=== PATIENT | male | born 1945 | race Hispanic/Latino ===

== ENCOUNTER 2018-08-28 07:40 | Day surgery (SDC) | payer OTHER ==
[2018-08-28] VITALS (9 sets, daily range): BP systolic 115–140; BP diastolic 71–88
[~2018-08-28 07:40] MED LIST: ASPI-555 PO; CARV3.1262 PO; LOSA25TA41 PO; Nitroglycerin SL; PRAV40TA3 PO
[2018-08-28] MEDS ORDERED: IOPAMIDOL 10 ML VIAL ONE ×2 (08:01→09:00)
[2018-08-28 08:42] LABS: BASOPHILS % (AUTO) 0.4 % (0.0-5.0); EOSINOPHILS % (AUTO) 2.2 % (0.0-8.0); HEMATOCRIT 45.2 % (42-54); LYMPHOCYTES % (AUTO) 16.4 % (21.0-51.0); MEAN CORPUSCULAR HGB CONC 33.4 g/dL (32.0-36.0); MEAN CORPUSCULAR VOLUME 92.7 fL (79-99); MONOCYTES % (AUTO) 11.2 % (3.0-13.0); NEUTROPHILS % (AUTO) 69.8 % (40.0-77.0); NUCLEATED RED BLOOD CELLS 0.1 % (0.0-0.19); PLATELET COUNT (AUTO) 173 K/uL (130-400); RED BLOOD CELL COUNT(AUTO) 4.87 MIL/uL (4.50-6.20); RED CELL DISTRIBUTION WIDTH 13.3 % (11.0-15.5); WHITE BLOOD COUNT (AUTO) 5.3 K/uL (4.8-10.8)
[2018-08-28] MEDS ORDERED: LIDOCAINE HCL 1% 20 ML VIAL ONE (08:44)
[2018-08-28 08:54] LABS: INR 0.95 (0.85-1.15)
[2018-08-28 08:57] LABS: CREATININE 1.5 mg/dL (0.5-1.5); POTASSIUM 4.5 mmol/L (3.5-5.1)
--- NOTE | 2018-08-28 09:20 | NUR ---
CT LUMBAR MYELOGRAM PROCEDURE PERFORMED BY DR. DUONG. PUNCTURE SITE LOW BACK AND PATIENT TOLERATED PROCEDURE WELL. CONTRAST INJECTION OF ISOVUE 200MG/20ML GIVEN AT 0935, END OF PROCEDURE AT 0940. SPINAL NEEDLE REMOVED AND BAND-AID APPLIED. NO BLEEDING NOTED. REPORT GIVEN TO JOHN MCPHERSON RN. PATIENT TRANSPORTED TO DAY PATIENT VIA BED. AAO X 3. NO C/O PAIN.
--- NOTE | 2018-08-28 09:49 | NUR ---
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. PT LYING FLAT. BAND X1 TO LOWER BACK. SOFT TO TOUCH. NO BLEEDING, OOZING NOTED TO SITE. INSTRUCTED IN IMPORTANCE OF LYING FLAT FOR 2 HOURS. BOTH PT AND PTS GIRLFRIEND VERBALIZED UNDERSTANDING.
--- NOTE | 2018-08-28 12:05 | NUR ---
DISCHARGE ORAL AND WRITTEN DISCHARGE INSTRUCTIONS GIVEN TO PT AND PTS GIRLFRIEND. SITE TO LOWER BACK SOFT TO TOUCH. NO BLEEDING, OOZING, NOTED TO SITE. INSTRUCTIONS GIVEN PER RADIOLOGY DEPT. BOTH VERBALIZED UNDERSTANDING.
[2018-08-29] MEDS ORDERED: CARV12.511 PO (17:00)
== END 2018-08-28 12:20 | disposition home or self-care (01) ==
LOC: RAH 07:40 → DAH 07:40 → EDSTATUS 08:00 → RAH 12:20
PROVIDERS: ATTEND Neuromusculoskeletal Medicine & OMM
DX: M51.16 Intervertebral disc disorders with radiculopathy, lumbar region (principal); I10 Essential (primary) hypertension; E78.5 Hyperlipidemia, unspecified; Z79.899 Other long term (current) drug therapy; Z98.890 Other specified postprocedural states
CPT/HCPCS: 36415; 62304; 72132; 80048; 85025; 85610; Q9966 ×2

== ENCOUNTER → 2022-12-27 | Outpatient (CLI) | payer OTHER ==
[~2022-12-27] MED LIST changes: -ASPI-555 PO; +ASPI-556 PO; +CARV12.511 PO; -CARV3.1262 PO; -LOSA25TA41 PO; +PHEN100C10 PO
== END | disposition home or self-care (01) ==
LOC: RAH 11:12
PROVIDERS: ATTEND Otolaryngology Plastic Surgery within the Head & Neck
DX: J32.0 Chronic maxillary sinusitis (principal); M47.812 Spondylosis without myelopathy or radiculopathy, cervical region; G31.9 Degenerative disease of nervous system, unspecified; M48.02 Spinal stenosis, cervical region; R22.1 Localized swelling, mass and lump, neck
CPT/HCPCS: 70540

== ENCOUNTER → 2023-01-26 | Outpatient (CLI) | payer OTHER | END | disposition home or self-care (01) | LOC: RAH 10:12 | PROVIDERS: ATTEND Otolaryngology Plastic Surgery within the Head & Neck | DX: E04.1 Nontoxic single thyroid nodule (principal) | CPT/HCPCS: 76536 ==